=== PATIENT | female | born 1945 | race Hispanic/Latino ===

== ENCOUNTER 2018-11-28 15:09 | Emergency (ER) | payer OTHER ==
[~2018-11-28 15:09] MED LIST: AEC81 PO; ATOR20TA65 PO; CARV3.1262 PO; CLOP75TA14 PO; ENAL5TAB PO; ENALAPRIL PO; METF-444 PO; Nitroglycerin 0.4MG Sl Tab SL
[2018-11-28 15:42] LABS: BASOPHILS % (AUTO) 1.3 % (0.0-5.0); EOSINOPHILS % (AUTO) 5.9 % (0.0-8.0); HEMATOCRIT 30.2 % (36-48); LYMPHOCYTES % (AUTO) 23.1 % (21.0-51.0); MEAN CORPUSCULAR HEMOGLOBIN 28.5 pg (27.0-33.0); MEAN CORPUSCULAR HGB CONC 33.8 g/dL (32.0-36.0); MEAN CORPUSCULAR VOLUME 84.3 fL (79-99); NEUTROPHILS % (AUTO) 62.7 % (40.0-77.0); NUCLEATED RED BLOOD CELLS 0.1 % (0.0-0.19); PLATELET COUNT (AUTO) 365 K/uL (130-400); RED BLOOD CELL COUNT(AUTO) 3.58 MIL/uL (4.00-5.50); RED CELL DISTRIBUTION WIDTH 12.8 % (11.0-15.5); WHITE BLOOD COUNT (AUTO) 8.7 K/uL (4.8-10.8)
[2018-11-28] MEDS ORDERED: SODIUM CHLORIDE 0.9% 1000ML 1,000 ML IV ONE (15:43)
[2018-11-28 15:53] LABS: CREATININE 1.4 mg/dL (0.5-1.5); POTASSIUM 4.6 mmol/L (3.5-5.1)
[2018-11-28 15:58] LABS: ALBUMIN 3.6 g/dL (3.5-5.0); BILIRUBIN,TOTAL 0.6 mg/dL (0.2-1.0); TOTAL PROTEIN, SERUM 7.6 g/dL (6.0-8.3)
[2018-11-28 16:19] LABS: APPEARANCE,URINE Clear (CLEAR); BILIRUBIN,URINE Negative (NEGATIVE); COLOR,URINE Yellow (YELLOW); GLUCOSE, URINE (UA) Negative (NEGATIVE); KETONES,URINE Negative (NEGATIVE); LEUKOCYTE ESTERASE ,URINE Large (NEGATIVE); NITRATE,URINE Negative (NEGATIVE); OCCULT BLOOD,URINE Negative (NEGATIVE); PROTEIN,URINE Negative (NEGATIVE); UROBILINOGEN,URINE 0.2 mg/dL (0.2-1.0)
[2018-11-28 16:53] LABS: BACTERIA,URINE Few /HPF (None Seen); RBC,URINE None Seen /HPF (0-1); TRANSITIONAL EPI CELLS,URINE Few /HPF (None Seen)
[2018-11-28] MEDS ORDERED: CEFTRIAXONE SODIUM 1 GM ONE (17:30)
== END 2018-11-28 18:11 | disposition home or self-care (01) ==
LOC: EDH 15:09
DX: E86.0 Dehydration (principal); R42 Dizziness and giddiness; N39.0 Urinary tract infection, site not specified; I10 Essential (primary) hypertension; E11.9 Type 2 diabetes mellitus without complications; E78.5 Hyperlipidemia, unspecified; I25.2 Old myocardial infarction
CPT/HCPCS: 36415; 80053; 81001; 84484; 85025; 93005; 96361; 96374; 99284; J0696; J7030

== ENCOUNTER 2018-12-07 16:01 | Emergency (ER) | payer OTHER ==
[2018-12-07 16:26] LABS: BASOPHILS % (AUTO) 1.8 % (0.0-5.0); EOSINOPHILS % (AUTO) 6.9 % (0.0-8.0); LYMPHOCYTES % (AUTO) 30.8 % (21.0-51.0); MEAN CORPUSCULAR HEMOGLOBIN 28.7 pg (27.0-33.0); MEAN CORPUSCULAR HGB CONC 33.9 g/dL (32.0-36.0); MEAN CORPUSCULAR VOLUME 84.8 fL (79-99); MONOCYTES % (AUTO) 5.3 % (3.0-13.0); NEUTROPHILS % (AUTO) 55.2 % (40.0-77.0); NUCLEATED RED BLOOD CELLS 0.1 % (0.0-0.19); PLATELET COUNT (AUTO) 415 K/uL (130-400); RED BLOOD CELL COUNT(AUTO) 3.54 MIL/uL (4.00-5.50); RED CELL DISTRIBUTION WIDTH 12.6 % (11.0-15.5); WHITE BLOOD COUNT (AUTO) 9.2 K/uL (4.8-10.8)
[2018-12-07 16:34] LABS: CREATININE 1.3 mg/dL (0.5-1.5); POTASSIUM 4.2 mmol/L (3.5-5.1)
[2018-12-07 16:39] LABS: ALBUMIN 3.9 g/dL (3.5-5.0); BILIRUBIN,TOTAL 0.4 mg/dL (0.2-1.0); TOTAL PROTEIN, SERUM 7.5 g/dL (6.0-8.3)
[2018-12-07 17:00] LABS: BILIRUBIN,URINE Negative (NEGATIVE); COLOR,URINE Yellow (YELLOW); GLUCOSE, URINE (UA) Negative (NEGATIVE); KETONES,URINE Negative (NEGATIVE); LEUKOCYTE ESTERASE ,URINE Trace (NEGATIVE); NITRATE,URINE Negative (NEGATIVE); OCCULT BLOOD,URINE Negative (NEGATIVE); PROTEIN,URINE Negative (NEGATIVE); UROBILINOGEN,URINE 0.2 mg/dL (0.2-1.0)
[2018-12-07 17:03] LABS: APPEARANCE,URINE Clear (CLEAR)
[2018-12-07 17:44] LABS: BACTERIA,URINE None Seen /HPF (None Seen); RBC,URINE None Seen /HPF (0-1); RENAL EPITHELIAL CELLS,URINE Rare /HPF (None Seen); TRANSITIONAL EPI CELLS,URINE Few /HPF (None Seen); WBC,URINE 0-1 /HPF (0-1)
== END 2018-12-07 19:48 | disposition home or self-care (01) ==
LOC: EDH 16:01
DX: I95.9 Hypotension, unspecified (principal); E11.9 Type 2 diabetes mellitus without complications; E78.5 Hyperlipidemia, unspecified; I25.2 Old myocardial infarction; Z90.49 Acquired absence of other specified parts of digestive tract; Z98.890 Other specified postprocedural states
CPT/HCPCS: 36415; 71045; 80053; 81001; 82948; 83880; 84484; 85025; 93005

== ENCOUNTER → 2018-12-25 | Outpatient (CLI) | payer OTHER | END | disposition home or self-care (01) | LOC: SHCH 11:11 | PROVIDERS: ATTEND Internal Medicine Cardiovascular Disease | DX: I25.10 Atherosclerotic heart disease of native coronary artery without angina pectoris (principal) | CPT/HCPCS: 93880 ==

== ENCOUNTER → 2019-01-23 | Outpatient (CLI) | payer OTHER | END | disposition home or self-care (01) | LOC: SHCH 13:09 | PROVIDERS: ATTEND Internal Medicine Cardiovascular Disease | DX: I08.0 Rheumatic disorders of both mitral and aortic valves (principal); I25.10 Atherosclerotic heart disease of native coronary artery without angina pectoris | CPT/HCPCS: 93306 ==

== ENCOUNTER 2019-07-01 08:39 | Observation (INO) | payer OTHER ==
[2019-06-29 10:54] VITALS: BP 141/57
[2019-06-29 11:19] LABS: EOSINOPHILS % (AUTO) 12.6 % (0.0-8.0); HEMATOCRIT 32.6 % (36-48); LYMPHOCYTES % (AUTO) 30.3 % (21.0-51.0); MEAN CORPUSCULAR HEMOGLOBIN 29.6 pg (27.0-33.0); MEAN CORPUSCULAR HGB CONC 34.2 g/dL (32.0-36.0); MEAN CORPUSCULAR VOLUME 86.6 fL (79-99); NEUTROPHILS % (AUTO) 50.1 % (40.0-77.0); NUCLEATED RED BLOOD CELLS 0.1 % (0.0-0.19); PLATELET COUNT (AUTO) 240 K/uL (130-400); RED BLOOD CELL COUNT(AUTO) 3.76 MIL/uL (4.00-5.50); RED CELL DISTRIBUTION WIDTH 13.1 % (11.0-15.5); WHITE BLOOD COUNT (AUTO) 8.4 K/uL (4.8-10.8)
[2019-06-29 11:24] LABS: POTASSIUM 4.5 mmol/L (3.5-5.1)
[2019-06-29 12:05] LABS: APPEARANCE,URINE Clear (CLEAR); BILIRUBIN,URINE Negative (NEGATIVE); COLOR,URINE Yellow (YELLOW); GLUCOSE, URINE (UA) Negative (NEGATIVE); KETONES,URINE Negative (NEGATIVE); LEUKOCYTE ESTERASE ,URINE Small (NEGATIVE); NITRATE,URINE Negative (NEGATIVE); OCCULT BLOOD,URINE Negative (NEGATIVE); PROTEIN,URINE Negative (NEGATIVE); UROBILINOGEN,URINE 0.2 mg/dL (0.2-1.0)
[2019-06-29 12:12] LABS: INR 1.1 (0.85-1.15); PROTHROMBIN TIME 11.5 SEC (9.6-11.6)
[2019-06-29 12:30] LABS: BACTERIA,URINE Rare /HPF (None Seen); RBC,URINE 0-1 /HPF (0-1); SQUAMOUS EPITHELIAL CELL,UR Rare /HPF (0-2); WBC,URINE 0-1 /HPF (0-1)
[2019-06-29 12:36] LABS: PARTIAL THROMBOPLASTIN TIME 27.7 SEC (26.3-35.5)
[~2019-07-01] VITALS: Ht 157.5 cm; Wt 47.4 kg
[2019-07-01] VITALS (29 sets, daily range): BP systolic 95–138; BP diastolic 40–89
[~2019-07-01 08:39] MED LIST changes: +ENAL10TA PO; -ENAL5TAB PO; -ENALAPRIL PO; +SODIUM CHLORIDE 0.9% 1000ML 1,000 ML IV SCH
[2019-07-01] MEDS ORDERED: IOHEXOL-350 50ML VIAL IV ONE (11:42)
[2019-07-01] MEDS ORDERED: HEPARIN SODIUM 1000UNIT/ML 10ML VIAL ONE (11:42)
[2019-07-01] MEDS ORDERED: LIDOCAINE HCL 2% 20ML ONE (11:42)
[2019-07-01] MEDS ORDERED: IOHEXOL 350 MG/ML 100ML INFUS..BTL IV ONE (11:42)
[2019-07-01] MEDS ORDERED: IOHEXOL-350 75 ML VIAL IV ONE (13:27)
[2019-07-01] MEDS ORDERED: NITROGLYCERIN 4.1 GM SPRAY TL ONE (13:43)
[2019-07-01] MEDS ORDERED: LABETALOL 20 MG/4 ML DISP.SYRIN IV ONE (13:46)
[2019-07-01] MEDS ORDERED: CLOPIDOGREL BISULFATE 300 MG TAB ONE (13:48)
[2019-07-01] MEDS ORDERED: ASPIRIN 325MG EC TAB 325 MG TABLET.DR PO ONE (13:48)
[2019-07-01] MEDS ORDERED: MORPHINE SULFATE 4 MG/1ML SYG ONE (13:59)
[2019-07-01] MEDS ORDERED: HYDRALAZINE HCL 20 MG/ML VIAL ONE (13:59)
[2019-07-01] MEDS ORDERED: DEXTROSE 50%-WATER 50 ML DISP.SYRIN IV PRN (14:00)
[2019-07-01] MEDS ORDERED: GLUCAGON 1MG KIT 1 MG ML IM PRN (14:00)
[2019-07-01] MEDS ORDERED: ONDANSETRON HCL 4 MG/2 ML VIAL IVP SCH (14:00)
[2019-07-01] MEDS ORDERED: NITROGLYCERIN 0.4 MG SL TAB SL PRN (14:00)
[2019-07-01] MEDS ORDERED: MORPHINE SULFATE 5 MG/ML VIAL IVP SCH (14:00)
[2019-07-01] MEDS ORDERED: ENALAPRIL MALEATE 10 MG TABLET PO SCH (14:15)
[2019-07-01] MEDS ORDERED: CARVEDILOL 6.25 MG TABLET PO SCH (14:15)
--- NOTE | 2019-07-01 14:23 | NUR ---
PATIENT RETURNED FROM [facility] PATIENT BROUGHT BACK FROM [facility] VIA BED BY ELIAS SHAHID. PATIENT AAOX3, RESPIRATIONS UNLABORED, VITAL SIGNS STABLE. PT C/O CHEST PAIN, RATES IT AT A 4 OUT OF 10. [address] TO PT'S RIGHT FEMORAL/GROIN. SMALL AMOUNT OF BLOOD NOTED TO SITE BUT NOT ACTIVELY BLEEDING. RIGHT PEDAL PULSE PRESENT WITH DOPPLER. FAMILY PRESENT AT BEDSIDE. PT INSTRUCTED TO LAY FLAT AND NOT LIFE HER HEAD, PT VERBALIZED UNDERSTANDING. SIDERAILS UPX2, BED IN LOWEST POSITION, CALL BEL IN REACH,.
--- NOTE | 2019-07-01 15:00 | NUR ---
DR GUPTA CAME TO SEE PATIENT AND ORDERED NITROGLYECRINE FOR CHEST PAIN. ALSO EKG WAS SHOWN TO DR GUPTA, NO NEW ORDERS RECEIVED.
--- NOTE | 2019-07-01 15:16 | NUR ---
DR MORTENSEN CALLED DR MORTENSEN AND INFORMED HIM THAT PATIENT IS GOING TO BE ADMITTED TO HIM FOR CAD/ANGINA AND S/P LEFT HEART CATH. RECEIVED ORDERS TO HAVE RECEIVING NURSE PLEASE NOTIFY DR STEEN WHEN PATIENT ARRIVES TO THE UNIT.
[2019-07-01] MEDS ORDERED: INSULIN HUMULIN R 100 UNIT/ML 3ML SQ SCH (16:30)
--- NOTE | 2019-07-01 18:38 | NUR ---
REPORT/HAND OFF COMMUNICATION CALLED REPORT TO ELIAS FULTON USING SBAR. INFORMED KIRSTIN OF PATIENT'S MEDICAL STATUS AND ANSWERED ALL QUESTIONS.
--- NOTE | 2019-07-01 18:50 | NUR ---
PATIENT TRANSFERRED PATIENT TAKEN TO ROOM 210 VIA BED BY ELIAS ROSALES AND ELIAS KWONG. PATIENT'S FAMILY MEMBERS INFORMED OF PATIENT'S NEW ROOM AND INSTRUCTED ON HOW TO GET TO THE SECOND FLOOR. PATIENT TAKEN TO ROOM 210 AND RIGHT FEMORAL SITE WAS ASSESSED BY MYSELF AND ELIAS KAHN. SITE WITH DRESSING IN PLACE AND CATHETER LINE IN PLACE. SITE SOFT AND NONTENDER, NO DRAINAGE OR BLEEDING NOTED.
[2019-07-01] MEDS ORDERED: ATORVASTATIN CALCIUM 20 MG TABLET PO SCH (21:00)
[2019-07-01] MEDS ORDERED: CARVEDILOL 3.125 MG TABLET PO SCH (21:00)
[2019-07-01 21:02] LABS: INR 1.14 (0.85-1.15); PARTIAL THROMBOPLASTIN TIME 36.4 SEC (26.3-35.5); PROTHROMBIN TIME 11.9 SEC (9.6-11.6)
--- NOTE | 2019-07-01 22:31 | NUR ---
Patient arrived to room 210 at 1850 with right femoral sheath in place. Site soft to touch with minimal bleeding present. Katheryn GRIFFIN from [facility] contacted Dr. Tejada to inform him the patient has arrived. PTT was 36, so sheath removed at 2114. Pressure was held for 50 min. POressure dressing placed to site with no complications noted.
[2019-07-02] VITALS (28 sets, daily range): BP systolic 113–137; BP diastolic 44–55
[2019-07-02] MEDS ORDERED: ACETAMINOPHEN 325 MG TAB ONE (02:28)
[2019-07-02] MEDS ORDERED: ACETAMINOPHEN 325 MG TAB PO PRN (02:30)
[2019-07-02 03:58] LABS: MEAN CORPUSCULAR HEMOGLOBIN 29.7 pg (27.0-33.0); MEAN CORPUSCULAR VOLUME 84.9 fL (79-99); PLATELET COUNT (AUTO) 241 K/uL (130-400); RED BLOOD CELL COUNT(AUTO) 3.42 MIL/uL (4.00-5.50); RED CELL DISTRIBUTION WIDTH 13.4 % (11.0-15.5); WHITE BLOOD COUNT (AUTO) 10.6 K/uL (4.8-10.8)
[2019-07-02 04:27] LABS: CREATININE 1.2 mg/dL (0.5-1.5)
[2019-07-02] MEDS ORDERED: ENALAPRIL MALEATE 10 MG TABLET PO SCH (09:00)
[2019-07-02] MEDS ORDERED: CLOPIDOGREL BISULFATE 75 MG TAB PO SCH (09:00)
[2019-07-02] MEDS ORDERED: ASPIRIN 81 MG EC TAB PO SCH (09:00)
[2019-07-02] MEDS ORDERED: FAMOTIDINE 20MG TAB 20 MG TAB PO SCH (09:00)
--- NOTE | 2019-07-02 09:19 | NUR ---
MD ROUNDS DR. GUPTA IN TO SEE PATIENT. MD SPOKE WITH PATIENT. PER DR. GUPTA PATIENT MAY DISCHARGE HOME. I UPDATED HIM ON HEART RATE IN THE 50s. PATIENT TO CONTINUE SAME HOME MEDICATIONS. COREG CHANGED BACK TO3.125MG PO BID.
[2019-07-02] MEDS ORDERED: CARVEDILOL 3.125 MG TABLET PO SCH (09:30)
--- NOTE | 2019-07-02 11:02 | NUR ---
SPOKE WITH LUCÍA Sweeney VIA TELEPHONE, CLARIFIED F/U APPOINTMENT FOR [address] GUPTA.
--- NOTE | 2019-07-02 13:11 | NUR ---
PATIENT HAS BEEN DISCHARGED HOME, ALL INSTRUCTIONS GIVEN TO PATIENT AND DAUGHTER UTILIZING TEACH BACK. PT TO CONTINUE WITH ALL HOME MEDS, NO NEW RX ADDED. F/U WITH DR. GUPTA FOR 07/13/19 AT 12:40PM. POST OP INSTRUCTIONS READ WITH PATIENT AND DAUGHTER. INSTRUCTION ON MONITORING BLOOD PRESSURE AND PULSE GIVEN. ENCOURAGED TO KEEP A LOG OF GLUCOSE, BP AND HR. DAUGHTER STATES THEY DO BUT WILL NOW INCLUDE THE HEART RATE WELL. ALL QUESTIONS AND CONCERNS ADDRESSED. PT TO RESUME METFORMIN 07/04/19. VOICED UNDERSTANDING. PIV TO LEFT FA REMOVED WITH CATHETER INTACT. PT ESCORTED VIA W/C BY LOPEZ DAVID. PT IN STABLE CONDITION.
== END 2019-07-02 13:25 | disposition home or self-care (01) ==
LOC: DAH 08:39 → DAHIP 08:40 → DAH 08:40 → 2BH 18:54
PROVIDERS: ADMIT Internal Medicine; ATTEND Internal Medicine
DX: I25.10 Atherosclerotic heart disease of native coronary artery without angina pectoris (principal); I10 Essential (primary) hypertension; I25.2 Old myocardial infarction; I35.1 Nonrheumatic aortic (valve) insufficiency; I35.0 Nonrheumatic aortic (valve) stenosis; R94.31 Abnormal electrocardiogram [ECG] [EKG]; E11.9 Type 2 diabetes mellitus without complications; E78.5 Hyperlipidemia, unspecified; Z79.82 Long term (current) use of aspirin; Z79.84 Long term (current) use of oral hypoglycemic drugs; Z79.899 Other long term (current) drug therapy
CPT/HCPCS: 36415 ×3; 71045; 80048 ×2; 81001; 82948 ×5; 85025; 85027; 85610 ×2; 85730 ×4; 93005 ×2; 93458; C1769; C1874; C1887; C1894; C9600; G0378 ×24; J0360; J1644 ×3; J2270; J3490; J7030; Q9965; Q9967 ×3

== ENCOUNTER → 2022-02-22 | Outpatient (CLI) | payer OTHER ==
[~2022-02-22] MED LIST changes: -ENAL10TA PO; +ENAL10TA18 PO; -SODIUM CHLORIDE 0.9% 1000ML 1,000 ML IV SCH
[2022-02-22 12:31] LABS: BASOPHILS % (AUTO) 1.8 % (0.0-5.0); EOSINOPHILS % (AUTO) 7.9 % (0.0-8.0); LYMPHOCYTES % (AUTO) 32.6 % (21.0-51.0); MEAN CORPUSCULAR HEMOGLOBIN 28.2 pg (27.0-33.0); MEAN CORPUSCULAR HGB CONC 32.9 g/dL (32.0-36.0); MEAN CORPUSCULAR VOLUME 85.6 fL (79-99); MONOCYTES % (AUTO) 6.4 % (3.0-13.0); PLATELET COUNT (AUTO) 249 K/uL (130-400); RED BLOOD CELL COUNT(AUTO) 3.62 MIL/uL (4.00-5.50); RED CELL DISTRIBUTION WIDTH 12.8 % (11.0-15.5); WHITE BLOOD COUNT (AUTO) 6.8 K/uL (4.8-10.8)
[2022-02-22 13:42] LABS: CREATININE 1.1 mg/dL (0.5-1.5); POTASSIUM 4.4 mmol/L (3.5-5.1); T4 (THYROXINE) 6.5 ug/dL (4.7-13.3); THYROID STIMULATING HORMONE 2.01 uIU/mL (0.36-3.74)
== END | disposition home or self-care (01) ==
LOC: LAB 09:52
PROVIDERS: ATTEND Internal Medicine Cardiovascular Disease
DX: I10 Essential (primary) hypertension (principal)
CPT/HCPCS: 36415; 80048; 84436; 84443; 85025

== ENCOUNTER → 2022-09-11 | Outpatient (CLI) | payer OTHER ==
[~2022-09-11] MED LIST changes: +CLOP-31 PO; -CLOP75TA14 PO
== END | disposition home or self-care (01) ==
LOC: SHCH 14:36
PROVIDERS: ATTEND Internal Medicine Cardiovascular Disease
DX: I08.3 Combined rheumatic disorders of mitral, aortic and tricuspid valves (principal); I25.10 Atherosclerotic heart disease of native coronary artery without angina pectoris
CPT/HCPCS: 93306

== ENCOUNTER → 2023-06-18 | Outpatient (CLI) | payer OTHER ==
[~2023-06-18] MED LIST changes: +ENAL-89 PO; -ENAL10TA18 PO; +REGADENOSON 0.4 MG/5 ML PF SYG IVP ONE
== END | disposition home or self-care (01) ==
LOC: SHCH 08:31
PROVIDERS: ATTEND Internal Medicine Cardiovascular Disease
DX: I25.119 Atherosclerotic heart disease of native coronary artery with unspecified angina pectoris (principal); I10 Essential (primary) hypertension
CPT/HCPCS: 78452; 93017; J2785; A9500 ×2; 96374